=== PATIENT | male | born 1960 | race African-American/Black ===

== ENCOUNTER 2024-08-28 01:01 | Inpatient (IN) | payer MEDICAID, MEDICARE, SELFPAY ==
[2024-08-28] MEDS ORDERED: Nitroglycerin 50 MG/250 ML BOT 250 ML ONE (01:06)
[2024-08-28 01:37] LABS: Actual Bicarbonate (HCO3v) 20.1 mEq/L (22-28); Base Excess -5.2 mEq/L (-2.0 to +3.0); Calcium, Ionized (venous) 1.06 mmol/L (1.16-1.32); Chloride (VBG) 110 mmol/L (98-106); Hematocrit-VBG 25 % (42.0-52.0); Hemoglobin (Hb) 8.6 g/dL (12.6-17.4); Potassium (VBG) 5.09 mmol/L (3.70-5.30); Sodium 139 mmol/L (133-146); pH (venous) 7.338 (7.32-7.43)
[2024-08-28 01:37] LABS: #Basophils 0.03 10x3/uL (0.0-0.2); %Basophils 0.2 % (0.0-1.0); %Eosinophils 1.5 % (0.0-10.0); %Lymphocytes 9.4 % (21.0-51.0); %Monocytes 4.6 % (0.0-10.0); Hemoglobin 7.9 g/dL (14.0-18.0); Mean Corpuscular HGB CONC 32.9 g/dL (32.0-36.0); Mean Corpuscular Hemoglobin 30.3 pg (27.0-31.0); Mean Platelet Volume 9.9 fL (7.4-10.4); Platelet Count 197 10x3/uL (130-400); RBC Distribution Width 11.9 % (11.5-14.5); Red Blood Cell (RBC) Count 2.61 mill/uL (4.70-6.10)
[2024-08-28 02:00] LABS: ALT (SGPT) 11 U/L (8-55); AST (SGOT) 16 U/L (5-34); Albumin 3.1 g/dL (3.4-4.8); Alkaline Phosphatase 84 U/L (40-110); Anion Gap 14 mmol/L (10-20); BUN (Urea Nitrogen) 42 mg/dL (8.4-25.7); Bilirubin, Total 0.4 mg/dL (0.2-1.2); Calc. Creatinine Clearance 0 mL/min (70-130); Calcium 8.1 mg/dL (7.8-10.44); Carbon Dioxide 18 mmol/L (23-31); Chloride 111 mmol/L (98-107); Estimated GFR 12; Globulin 2.9 g/dL (2.4-3.5); Glucose 189 mg/dL (80-115); Sodium 138 mmol/L (136-145)
[2024-08-28 02:02] LABS: Troponin I 0.023 ng/mL (< 0.028)
[2024-08-28] MEDS ORDERED: Furosemide 40 MG (4 mL) VIAL ONE (02:21)
[2024-08-28] MEDS ORDERED: Ondansetron ODT 4 MG TAB PO PRN (02:40)
[2024-08-28] MEDS ORDERED: traMADol HCl 50 MG TAB PO PRN ×2 (02:40→08:10)
[2024-08-28] MEDS ORDERED: Acetaminophen 325 MG TAB PO PRN (02:40)
[2024-08-28] MEDS ORDERED: Ondansetron PF 4 MG/2 ML Vial IVP PRN (02:40)
[2024-08-28] MEDS ORDERED: hydrALAZINE 20 MG/ML VIAL ONE (03:09)
[2024-08-28] MEDS ORDERED: Furosemide 20 MG (2 mL) VIAL ONE (03:09)
[2024-08-28] MEDS ORDERED: Glucagon 1 MG/ML KIT IM PRN (03:10)
[2024-08-28] MEDS ORDERED: Dextrose 5% in Water 1,000 ML IV PRN (03:10)
[2024-08-28] MEDS ORDERED: Dextrose 50% Abboject 50 ML SYRINGE SLOW IVP PRN (03:10)
[2024-08-28] MEDS ORDERED: Insulin Lispro 100 UNIT/ML 10 ML VIAL SC PRN (03:10)
[2024-08-28] MEDS ORDERED: hydrALAZINE 20 MG/ML VIAL SLOW IVP PRN ×2 (03:32→23:37)
[2024-08-28] MEDS ORDERED: Ipratropium/Albuterol 3 ML NEB NEB PRN (03:33)
[2024-08-28] MEDS ORDERED: cefTRIAXone (ROCEPHIN) 1 GM VIAL ONE (04:19)
[2024-08-28] MEDS: cefTRIAXone\\ROCEPHIN 1 GM in Sodium Chloride 0.9% 100 ML IVPB SCH (04:30)
[2024-08-28 04:44] LABS: #Basophils 0.03 10x3/uL (0.0-0.2); %Basophils 0.3 % (0.0-1.0); %Eosinophils 0.6 % (0.0-10.0); %Lymphocytes 7.2 % (21.0-51.0); %Neutrophils 88.6 % (42.0-75.0); Hematocrit 22.5 % (42.0-52.0); Hemoglobin 7.1 g/dL (14.0-18.0); Mean Corpuscular HGB CONC 31.6 g/dL (32.0-36.0); Mean Corpuscular Volume 94.9 fL (78.0-98.0); Mean Platelet Volume 9.5 fL (7.4-10.4); Platelet Count 179 10x3/uL (130-400); Red Blood Cell (RBC) Count 2.37 mill/uL (4.70-6.10)
[2024-08-28] MEDS ORDERED: Azithromycin 500 MG VIAL ONE (05:04)
[2024-08-28] MEDS: Azithromycin 500 MG in Sodium Chloride 0.9% 250 ML 250 ML IVPB SCH (05:05)
[2024-08-28 05:41] LABS: ALT (SGPT) 9 U/L (8-55); AST (SGOT) 13 U/L (5-34); Albumin 2.8 g/dL (3.4-4.8); Alkaline Phosphatase 81 U/L (40-110); Anion Gap 15 mmol/L (10-20); BUN (Urea Nitrogen) 45 mg/dL (8.4-25.7); Bilirubin, Total 0.5 mg/dL (0.2-1.2); Calc. Creatinine Clearance 23 mL/min (70-130); Calcium 7.8 mg/dL (7.8-10.44); Carbon Dioxide 14 mmol/L (23-31); Chloride 112 mmol/L (98-107); Estimated GFR 12; Globulin 2.8 g/dL (2.4-3.5); Glucose 246 mg/dL (80-115); Potassium 5.9 mmol/L (3.5-5.1); Protein, Total 5.6 g/dL (5.8-8.1); Sodium 135 mmol/L (136-145)
[2024-08-28 06:29] LABS: Troponin I 0.075 ng/mL (< 0.028)
[2024-08-28] MEDS ORDERED: niCARdipine 40MG In NaCl 40 MG/200 ML BAG IVPB SCH (08:30)
[2024-08-28 08:34] VITALS: BMI 33.1
[2024-08-28] MEDS: niCARdipine 25 MG in Sodium Chloride 0.9% 250 ML 250 ML IVPB SCH (08:56)
[2024-08-28] MEDS: Pantoprazole 40 MG VIAL IVP SCH (08:57)
[2024-08-28] MEDS: Heparin 5,000 UNITS/ML VIAL SC SCH (08:57)
[2024-08-28] MEDS: Furosemide 40 MG (4 mL) VIAL SLOW IVP SCH (08:57)
[2024-08-28] MEDS ORDERED: Famotidine/PF 20 mg/2ml Vial SLOW IVP SCH (09:00)
[2024-08-28] MEDS ORDERED: Famotidine 20 MG TAB PO SCH (09:00)
[2024-08-28 10:04] LABS: Influenza A by NAA Not Detected (NotDetected); Influenza B by NAA Not Detected (NotDetected); RSV by NAA Not Detected (NotDetected); SARS-CoV-2 NAA Rapid Test Not Detected (NotDetected)
[2024-08-28] MEDS: Sodium Bicarb 50 MEQ/50 ML Abboject 8.4% SYRINGE IVP SCH (10:48)
[2024-08-28] MEDS: EPOETIN ALFA-EPBX (ESRD) 10,000 UNITS/ML VIAL SC SCH (11:56)
[2024-08-28] MEDS: niCARdipine 50 MG, Admixture Fee 1 EACH in Sodium Chloride 0.9% 250 ML 230 ML IVPB SCH (11:56)
[2024-08-28] MEDS: hydrALAZINE 25 MG TAB PO SCH (14:07)
[2024-08-28] MEDS: Insulin Lispro 100 UNIT/ML 10 ML VIAL SC PRN (16:17)
[2024-08-28 18:33] LABS: Anion Gap 14 mmol/L (10-20); BUN (Urea Nitrogen) 46 mg/dL (8.4-25.7); Calc. Creatinine Clearance 22 mL/min (70-130); Calcium 7.9 mg/dL (7.8-10.44); Carbon Dioxide 18 mmol/L (23-31); Chloride 111 mmol/L (98-107); Estimated GFR 11; Glucose 181 mg/dL (80-115); Potassium 4.7 mmol/L (3.5-5.1); Sodium 138 mmol/L (136-145)
[2024-08-28] MEDS: Magnesium Oxide 400 MG TAB PO SCH (20:00)
[2024-08-28] MEDS: Labetalol HCl 100 MG TAB PO SCH (20:00)
[2024-08-29 04:08] LABS: #Basophils Less than 0.03 10x3/uL (0.0-0.2); %Basophils 0.2 % (0.0-1.0); %Eosinophils 0.6 % (0.0-10.0); %Monocytes 7.4 % (0.0-10.0); %Neutrophils 71.6 % (42.0-75.0); Hematocrit 21.2 % (42.0-52.0); Hemoglobin 6.8 g/dL (14.0-18.0); Mean Corpuscular HGB CONC 32.1 g/dL (32.0-36.0); Mean Corpuscular Volume 93.4 fL (78.0-98.0); Mean Platelet Volume 10.1 fL (7.4-10.4); Platelet Count 170 10x3/uL (130-400); RBC Distribution Width 11.9 % (11.5-14.5); Red Blood Cell (RBC) Count 2.27 mill/uL (4.70-6.10)
[2024-08-29 04:22] LABS: Anion Gap 14 mmol/L (10-20); BUN (Urea Nitrogen) 49 mg/dL (8.4-25.7); Calc. Creatinine Clearance 22 mL/min (70-130); Calcium 7.8 mg/dL (7.8-10.44); Carbon Dioxide 18 mmol/L (23-31); Chloride 111 mmol/L (98-107); Estimated GFR 11; Glucose 159 mg/dL (80-115); Sodium 138 mmol/L (136-145)
[2024-08-29] MEDS ORDERED: glipiZIDE 5 MG TAB PO SCH (09:00)
[2024-08-29] MEDS: Atorvastatin Calcium 20 MG TAB PO SCH (09:58)
[2024-08-29] MEDS: Aspirin 81 mg Enteric Coated Tablet PO SCH (09:58)
[2024-08-29] MEDS: NIFEdipine XL 60 MG ER.TAB PO SCH (09:59)
[2024-08-29] MEDS: Tamsulosin HCl 0.4 MG CAP PO SCH (09:59)
[2024-08-29] MEDS: Furosemide 40 MG (4 mL) VIAL SLOW IVP SCH (10:00)
[2024-08-29 10:25] LABS: Iron 37 ug/dL (65-175); Iron Binding Capacity, Total 191 mcg/dL (261-462)
[2024-08-29] MEDS: Heparin 5,000 UNITS/ML VIAL SC SCH (14:41)
[2024-08-29 22:56] LABS: Hemoglobin 7.8 g/dL (14.0-18.0)
[2024-08-30 04:20] LABS: Anion Gap 16 mmol/L (10-20); BUN (Urea Nitrogen) 50 mg/dL (8.4-25.7); Calc. Creatinine Clearance 20 mL/min (70-130); Calcium 8.4 mg/dL (7.8-10.44); Carbon Dioxide 17 mmol/L (23-31); Chloride 111 mmol/L (98-107); Estimated GFR 10; Glucose 154 mg/dL (80-115); Potassium 4.8 mmol/L (3.5-5.1); Sodium 139 mmol/L (136-145)
[2024-08-30 04:24] LABS: #Basophils 0.03 10x3/uL (0.0-0.2); %Basophils 0.3 % (0.0-1.0); %Eosinophils 1.2 % (0.0-10.0); %Lymphocytes 14.2 % (21.0-51.0); %Monocytes 7.7 % (0.0-10.0); %Neutrophils 76.4 % (42.0-75.0); Hematocrit 23.4 % (42.0-52.0); Hemoglobin 7.8 g/dL (14.0-18.0); Mean Corpuscular HGB CONC 33.3 g/dL (32.0-36.0); Mean Corpuscular Hemoglobin 30.6 pg (27.0-31.0); Mean Corpuscular Volume 91.8 fL (78.0-98.0); Mean Platelet Volume 10.3 fL (7.4-10.4); Platelet Count 176 10x3/uL (130-400); RBC Distribution Width 12.5 % (11.5-14.5); Red Blood Cell (RBC) Count 2.55 mill/uL (4.70-6.10)
[2024-08-30 09:12] VITALS: TEMP 97.2
[2024-08-30] MEDS: Isosorbide Dinitrate 20 MG TAB PO SCH (10:52)
[2024-08-30] MEDS: NIFEdipine XL 30 MG ER.TAB PO SCH (10:52)
[2024-08-30 11:48] VITALS: BP 162/69
[2024-08-30] MEDS ORDERED: Isosorbide Dinitrate 20 MG TAB PO SCH (21:00)
[2024-08-31] MEDS ORDERED: NIFEdipine XL 90 MG ER.TAB PO SCH (09:00)
== END 2024-08-30 14:29 | disposition home or self-care (01) | DRG 871 ==
LOC: ERS 01:01 → ERHOLD 02:51 → CCU 07:52 → 2NO 08-29 01:01 → UNDODISIN 08-30 13:47
PROVIDERS: ADMIT Internal Medicine; ATTEND Internal Medicine
DX: A41.9 Sepsis, unspecified organism (principal); I50.31 Acute diastolic (congestive) heart failure; J96.01 Acute respiratory failure with hypoxia; N18.4 Chronic kidney disease, stage 4 (severe); I13.0 Hypertensive heart and chronic kidney disease with heart failure and stage 1 through stage 4 chronic kidney disease, or unspecified chronic kidney disease; I16.1 Hypertensive emergency; E87.20 Acidosis, unspecified; N17.9 Acute kidney failure, unspecified; E78.5 Hyperlipidemia, unspecified; E11.22 Type 2 diabetes mellitus with diabetic chronic kidney disease; D63.1 Anemia in chronic kidney disease; E66.9 Obesity, unspecified; E87.5 Hyperkalemia; E88.09 Other disorders of plasma-protein metabolism, not elsewhere classified; Z68.32 Body mass index [BMI] 32.0-32.9, adult
CPT/HCPCS: 0241U; 36415; 36416; 36430; 71045; 74176; 76770; 80048; 80053; 82728; 82805; 83540; 83550; 83605; 83880; 84145; 84484; 85025; 86850; 86900; 86901; 87040; 93005; 93306; 93970; 94660; 94760; 96365; 96366; 96375; 96376; J0360; J0456; J0696; J1644; J1815; J1940; J2470; J7050; P9016; Q5105